=== PATIENT | female | born 1995 | race Caucasian/White ===

== ENCOUNTER → 2021-03-08 09:45 | Outpatient (CLI) | payer OTHER, MEDICAID, SELFPAY ==
--- NOTE | 2021-03-08 09:48 | DI.RAD.S_ITS ---
PROCEDURE: XR HAND LT MIN 3V INDICATIONS: fall on left wrist TECHNIQUE: 3 views of the hand(s) acquired. COMPARISON: [facility], CR, XR WRIST LT MIN 3V, 03/08/2021, 9:56. FINDINGS: Bones: No fractures or dislocations. Carpal bones are normally aligned. No suspicious bony lesions. Soft tissues: No suspicious soft tissue calcifications. IMPRESSION: No visualized acute fracture or dislocation. However, if clinical concern and/or pain persist, short interval imaging followup in 7-10 days is recommended, as occult injury cannot be definitively excluded. Dictated by: Sabi Taylor M.D. on 03/08/2021 at 10:19 Approved by: Sabi Taylor M.D. on 03/08/2021 at 10:39
--- NOTE | 2021-03-08 09:48 | DI.RAD.S_ITS ---
PROCEDURE: XR WRIST LT MIN 3V INDICATIONS: fall on left wrist TECHNIQUE: 4 views of the wrist were acquired. COMPARISON: [facility], , XR HAND LT MIN 3V, 03/08/2021, 9:53. FINDINGS: Bones: No acute fractures or dislocations. No suspicious bony lesions. Scaphoid view: Intact scaphoid. Soft tissues: No suspicious soft tissue calcifications. IMPRESSION: No acute osseous abnormality. If clinical suspicion and/or symptoms persist, additional imaging with repeat plain films, or advanced imaging (e.g. CT, MRI) may be helpful for further assessment. Dictated by: Ender Bansal M.D. on 03/08/2021 at 10:13 Approved by: Ender Bansal M.D. on 03/08/2021 at 10:14
== END ==
PROVIDERS: Referring Provider Nurse Practitioner; Visit Provider Nurse Practitioner
DX: M25.539 Pain in unspecified wrist (principal); S69.90XA Unspecified injury of unspecified wrist, hand and finger(s), initial encounter
CPT/HCPCS: 73110; 73130

== ENCOUNTER 2023-04-24 01:18 | Emergency (ER) | payer OTHER, SELFPAY ==
[2023-04-24 01:27] VITALS: BP 100/72; PULSE 54; RESP 18; TEMP 36.8; O2SAT 100
--- NOTE | 2023-04-24 01:47 | ED.EAR ---
HPI - Ear Problem General Chief complaint: Ear Stated complaint: rt ear pain Time Seen by Provider: 04/24/23 01:42 Source: patient Mode of arrival: Ambulatory History of Present Illness HPI Narrative: Patient healthy 27-year-old female who has ongoing right ear pain. It seems like it has been going on for a couple weeks. She was seen initially last week at [facility] she had her ear irrigated and wax removed she was put on ofloxacin drops which he says made her ear pain worse. She ultimately went to [facility] where she was seen and put on amoxicillin. Tonight she wakes up with severe pain Tylenol is not helping. It hurts to touch it. She stopped taking the ofloxacin drops. She is an appointment with ENT tomorrow afternoon but unable to sleep. No fever or chills. She is been on amoxicillin for 2-1/2 days. Related Data Home Medications Medication Instructions Recorded Confirmed cholecalciferol (vitamin D3) 10 10 mcg PO DAILY 03/08/21 04/20/23 mcg (400 unit) capsule magnesium citrate 100 mg capsule 100 mg PO DAILY 03/08/21 04/20/23 tumeric 100 mg-clara 150 mg-olive cap PO 03/08/21 04/20/23 50 mg-oreg 150 mg-caprylate capsule Previous Rx's Medication Instructions Recorded ofloxacin 0.3 % ear drops 10 drp EAR-RIGHT DAILY 7 days #5 mL 04/20/23 Allergies Allergy/AdvReac Type Severity Reaction Status Date / Time Sulfa (Sulfonamide Allergy Mild Rash Verified 04/20/23 13:05 Antibiotics) Patient History Social History Smoking Status: Never smoker Smoking Status: Never smoker Substance Use Type: does not use Exam Initial Vital Signs Initial Vital Signs: Vital Signs Temperature 98.3 F 04/24/23 01:27 Pulse Rate 54 L 04/24/23 01:27 Respiratory Rate 18 04/24/23 01:27 Blood Pressure 100/72 04/24/23 01:27 Pulse Oximetry 100 04/24/23 01:27 Oxygen Delivery Method Room Air 04/24/23 01:27 GENERAL: Well-appearing, well-nourished and in no acute distress. EAR: Right ear tympanic membrane not visualized drainage in right ear swelling of kind now tender to touch no erythema Left ear within normal limits CARDIOVASCULAR: peripheral pulses in tact, cap refill <2 sec RESPIRATORY: No respiratory distress, speaks in full sentences without difficulty EXTREMITIES: Normal range of motion, no clubbing or edema. Neurovascularly intact NEUROLOGICAL: Cranial nerves II through XII grossly intact. Normal gait and speech. SKIN: Warm, dry, no petechiae, no rashes or lesions. Course Orders Ordered: Discontinued Medications Ciprofloxacin/Dexamethasone (Ciprofloxacin/Dexameth Otic Susp) 4 drops EAR-BOTH NOW ONE Stop: 04/24/23 01:49 Last Admin: 04/24/23 02:04 Dose: Not Given Documented By: VON Sodium Chloride (Normal Saline 0.9%) 1,000 mls @ 1,000 mls/hr IV BOLUS ONE Stop: 04/24/23 02:41 Last Admin: 04/24/23 01:52 Dose: Not Given Documented By: VON Ibuprofen (Ibuprofen 400 Mg Tablet) 800 mg PO NOW ONE Stop: 04/24/23 01:49 Last Admin: 04/24/23 02:04 Dose: Not Given Documented By: VON Ketorolac Tromethamine (Ketorolac 30 Mg/Ml Vial) 15 mg IV NOW ONE Stop: 04/24/23 01:43 Last Admin: 04/24/23 01:51 Dose: Not Given Documented By: VON Vital Signs Vital signs: Vital Signs - 8 hr 04/24/23 01:27 Temperature 98.3 F Pulse Rate 54 L Respiratory Rate 18 Blood Pressure 100/72 Pulse Oximetry 100 Oxygen Delivery Method Room Air Medical Decision Making [facility] Narrative Medical decision making narrative: Well-appearing 27-year-old female presents with ongoing right ear pain. Unable to sleep tonight she appears to have otitis externa. She has swelling and drainage in the right ear and is tender to touch. Discharge Plan Departure Patient Disposition: Home Clinical Impression: Otitis externa Instructions: DI for Otitis Externa Activity Restrictions/Additional Instructions: *You have been diagnosed with right otitis externa *What to do: At this time continue taking amoxicillin. Will add drops hopefully it helps this 1 has a steroid which may help decreased the swelling *Continue to take medications as directed Ciprodex 4 drops in right ear twice a day for 7 days Motrin/ibuprofen 600 mg every 8 hours for [id number] pain Tylenol/acetaminophen 1000 mg every 6 hours for [id number] pain *Follow up with your primary care provider in 2-3 days or call [phone] Follow-up with ENT tomorrow *Return to ER if you should have increasing pain fever or any new, worsening or concerning symptoms Prescriptions: No Action magnesium citrate 100 mg capsule 100 mg PO DAILY cholecalciferol (vitamin D3) 10 mcg (400 unit) capsule 10 mcg PO DAILY rpvsusp-fexn-qbjvi-oreg-capryl 100 mg-150 mg- 50 mg-150 mg capsule PO ofloxacin 0.3 % drops 10 drp EAR-RIGHT DAILY 7 Days Qty: 5 0RF Referrals: Miscellaneous,Doctor, MD [Primary Care Provider] - Stand Alone Forms: Patient Portal/API
--- NOTE | 2023-04-24 02:06 | PC.NURSE ---
patient declined prescription ear drops and tylenol. States she does not know how much that will cost her and would rather not take them.
== END 2023-04-24 02:11 | disposition home or self-care (01) ==
PROVIDERS: Emergency Provider Emergency Medicine
DX: H60.91 Unspecified otitis externa, right ear (principal)
CPT/HCPCS: 99281; 99282; 99283